=== PATIENT | female | born 1995 | race Caucasian/White ===

== ENCOUNTER 2019-12-19 03:26 | Emergency (ER) | payer SELFPAY ==
[~2019-12-19] VITALS: Ht 160 cm; Wt 61.7 kg
[2019-12-19 04:00] VITALS: BP 113/86
--- NOTE | 2019-12-19 04:00 | NUR ---
Patient discharged to home in stable conditon. Written and verbal after care instructions given. Patient verbalizes understanding of instructions.
== END 2019-12-19 04:00 | disposition home or self-care (01) ==
LOC: ER 03:35
DX: R05 Cough (principal); F17.210 Nicotine dependence, cigarettes, uncomplicated; Z88.2 Allergy status to sulfonamides
CPT/HCPCS: A4663